=== PATIENT | male | born 1965 | race Caucasian/White ===

== ENCOUNTER 2016-07-25 11:21 | Inpatient (IN) | payer MEDICARE, OTHER ==
[~2016-07-25] VITALS: Ht 190.5 cm; Wt 103.7 kg
[~2016-07-25 11:21] MED LIST: INVE6TAB2 PO; LORA-474 PO; ZYPR10TA9 PO
--- NOTE | 2016-07-25 11:40 | PD ---
HPI Chief Complaint: psychiatric evaluation Time Seen by Provider: 11:32 Travel History International Travel<30 days: No Contact w/Intl Traveler<30days: No Traveled to known affect area: No History of Present Illness HPI The patient is a 51-year-old male who presents emergency department via police as a Taylor act. According to the police affidavit the patient entered [employer] store earlier today and while purchasing a pair of shoes he told the reordering clerk that he was schizophrenic and has black males inside of him telling him to kill why people. The subject also made the same statements to the communication manager. The police officers affidavit states they made contact with the patient's mother who verified he is schizophrenic and needs assistance. Upon arrival patient denies any hallucinations or delusions. He denies any external stimuli denies ingestion of any alcohol or drugs. He denies any suicidal or homicidal ideation. He denies illicit drug use or alcohol use. The patient was found with a large amount of solis, approximate $1800 in solis, when asked why he has some much solis, he states he recently sold his house. The patient states he resides in [place]. [facility] Past Medical History Arthritis: No Anxiety: Yes Depression: Yes Cardiovascular Problems: Yes Cerebrovascular Accident: No Diminished Hearing: No Endocrine: No Genitourinary: No Hypertension: Yes Immune Disorder: No Musculoskeletal: No Neurologic: No Psychiatric: Yes Reproductive: No Respiratory: No Migraines: No Schizophrenia: Yes Seizures: No Past Surgical History Abdominal Surgery: No Cardiac Surgery: No Ear Surgery: No Endocrine Surgery: No Eye Surgery: No Genitourinary Surgery: No Gynecologic Surgery: No Oral Surgery: No Thoracic Surgery: No Other Surgery: Yes Social History Alcohol Use: No Tobacco Use: No Substance Use: No Allergies-Medications (Allergen,Severity, Reaction): Coded Allergies: Aspirin (Verified Allergy, Severe, 07/25/16) Reported Meds & Prescriptions Reported Meds & Active Scripts Active No Active Prescriptions or Reported Medications Review of Systems Except as stated in HPI: all other systems reviewed are Neg General / Constitutional: No: Fever Cardiovascular: No: Chest Pain or Discomfort Respiratory: No: Shortness of Breath Gastrointestinal: No: Nausea, Vomiting, Abdominal Pain Neurologic: No: Change in Mentation Psychiatric: Positive: Disorder of Thought, No: Anxiety, Depression, Suicidal Ideations, Substance Abuse, Homicidal Ideation Physical Exam Narrative GENERAL: Awake, alert, pleasant 51-year-old male who appears his stated age and is in no acute respiratory distress. Repetitive movements with the left upper extremity. SKIN: Warm and dry. Tattoos noted on the upper extremity is bilateral. HEAD: Atraumatic. Normocephalic. EYES: Pupils equal and round. Pupils are 3 mm bilateral and reactive. ENT: No nasal bleeding or discharge. Mucous membranes pink and moist. NECK: Trachea midline. No JVD. CARDIOVASCULAR: Regular rate and rhythm. No murmur appreciated. RESPIRATORY: No accessory muscle use. Clear to auscultation. Breath sounds equal bilaterally. GASTROINTESTINAL: Abdomen soft, non-tender, nondistended. No rebound tenderness. MUSCULOSKELETAL: No obvious deformities. No clubbing. No cyanosis. No edema. NEUROLOGICAL: Awake and alert. No obvious cranial nerve deficits. Motor grossly within normal limits. Normal speech. Nonfocal. Oriented to person, place, month, year, and payroll secretary. PSYCHIATRIC: Odd affect. Data Data Last Documented VS Vital Signs Date Time Temp Pulse Resp B/P Pulse Ox O2 Delivery O2 Flow Rate FiO2 07/25/16 11:42 97.8 107 16 192/95 96 Room Air Orders Complete Blood Count With Diff (07/25/16 11:39) Comprehensive Metabolic Panel (07/25/16 11:39) Psych Screen (07/25/16 11:39) Drug Screen, Random Urine (07/25/16 11:39) Alcohol (Ethanol) (07/25/16 11:39) Diet Regular Basic (07/25/16 Lunch) Labs Laboratory Tests Test 07/25/16 11:45 White Blood Count 6.4 TH/MM3 Red Blood Count 4.81 MIL/MM3 Hemoglobin 14.5 GM/DL Hematocrit 43.6 % Mean Corpuscular Volume 90.8 FL Mean Corpuscular Hemoglobin 30.2 PG Mean Corpuscular Hemoglobin 33.3 % Concent Red Cell Distribution Width 14.0 % Platelet Count 223 TH/MM3 Mean Platelet Volume 8.5 FL Neutrophils (%) (Auto) 53.4 % Lymphocytes (%) (Auto) 31.2 % Monocytes (%) (Auto) 12.0 % Eosinophils (%) (Auto) 2.2 % Basophils (%) (Auto) 1.2 % Neutrophils # (Auto) 3.4 TH/MM3 Lymphocytes # (Auto) 2.0 TH/MM3 Monocytes # (Auto) 0.8 TH/MM3 Eosinophils # (Auto) 0.1 TH/MM3 Basophils # (Auto) 0.1 TH/MM3 CBC Comment DIFF FINAL Differential Comment Sodium Level 141 MEQ/L Potassium Level 4.1 MEQ/L Chloride Level 107 MEQ/L Carbon Dioxide Level 26.2 MEQ/L Anion Gap 8 MEQ/L Blood Urea Nitrogen 14 MG/DL Creatinine 0.85 MG/DL Estimat Glomerular Filtration 95 ML/MIN Rate Random Glucose 100 MG/DL Calcium Level 8.9 MG/DL Total Bilirubin 0.5 MG/DL Aspartate Amino Transf 33 U/L (AST/SGOT) Alanine Aminotransferase 70 U/L (ALT/SGPT) Alkaline Phosphatase 84 U/L Total Protein 7.9 GM/DL Albumin 3.8 GM/DL Ethyl Alcohol Level LESS THAN 3 MG/DL [facility] Medical Decision Making Medical Screen Exam Complete: Yes Emergency Medical Condition: Yes Medical Record Reviewed: Yes Interpretation(s) Laboratory Tests Test 07/25/16 11:45 White Blood Count 6.4 TH/MM3 Red Blood Count 4.81 MIL/MM3 Hemoglobin 14.5 GM/DL Hematocrit 43.6 % Mean Corpuscular Volume 90.8 FL Mean Corpuscular Hemoglobin 30.2 PG Mean Corpuscular Hemoglobin 33.3 % Concent Red Cell Distribution Width 14.0 % Platelet Count 223 TH/MM3 Mean Platelet Volume 8.5 FL Neutrophils (%) (Auto) 53.4 % Lymphocytes (%) (Auto) 31.2 % Monocytes (%) (Auto) 12.0 % Eosinophils (%) (Auto) 2.2 % Basophils (%) (Auto) 1.2 % Neutrophils # (Auto) 3.4 TH/MM3 Lymphocytes # (Auto) 2.0 TH/MM3 Monocytes # (Auto) 0.8 TH/MM3 Eosinophils # (Auto) 0.1 TH/MM3 Basophils # (Auto) 0.1 TH/MM3 CBC Comment DIFF FINAL Differential Comment Sodium Level 141 MEQ/L Potassium Level 4.1 MEQ/L Chloride Level 107 MEQ/L Carbon Dioxide Level 26.2 MEQ/L Anion Gap 8 MEQ/L Blood Urea Nitrogen 14 MG/DL Creatinine 0.85 MG/DL Estimat Glomerular Filtration 95 ML/MIN Rate Random Glucose 100 MG/DL Calcium Level 8.9 MG/DL Total Bilirubin 0.5 MG/DL Aspartate Amino Transf 33 U/L (AST/SGOT) Alanine Aminotransferase 70 U/L (ALT/SGPT) Alkaline Phosphatase 84 U/L Total Protein 7.9 GM/DL Albumin 3.8 GM/DL Ethyl Alcohol Level LESS THAN 3 MG/DL Differential Diagnosis Differential diagnoses includes schizophrenia, schizoaffective disorder, psychosis, drug ingestion, encephalopathy. Narrative Course Labs were drawn and sent. Psychiatric evaluation was ordered. Labs are unremarkable. Patient is medically clear to be evaluated by psychiatry. Disposition as per psych. Diagnosis Primary Impression: Schizophrenia Qualified Code: F20.9 - Schizophrenia, unspecified type Scripts No Active Prescriptions or Reported Meds Condition: Stable Alvino Jacobsen MD Jul 25, 2016 11:40
[2016-07-25 11:42] VITALS: BP 192/95; PULSE 107; RESP 16; TEMP 97.8; O2SAT 96
[2016-07-25 11:59] LABS: AUTOMATED NEUTROPHIL # 3.4 TH/MM3 (1.8-7.7); BASOPHIL # 0.1 TH/MM3 (0-0.2); BASOPHIL % 1.2 % (0.0-2.0); EOSINOPHIL # 0.1 TH/MM3 (0-0.4); EOSINOPHIL % 2.2 % (0.0-4.0); HEMATOCRIT 43.6 % (39.0-51.0); HEMO FLAGS DIFF FINAL; LYMPH % 31.2 % (9.0-44.0); MEAN CELL VOLUME 90.8 FL (80.0-100.0); MEAN CORPUSCULAR HEMOGLOBIN 30.2 PG (27.0-34.0); MEAN CORPUSCULAR HGB CONC 33.3 % (32.0-36.0); NEUT % 53.4 % (16.0-70.0); PLATELET COUNT 223 TH/MM3 (150-450); RED BLOOD COUNT 4.81 MIL/MM3 (4.50-5.90); WHITE BLOOD COUNT 6.4 TH/MM3 (4.0-11.0)
[2016-07-25 12:22] LABS: ALKALINE PHOSPHATASE 84 U/L (45-117); TOTAL BILIRUBIN ADULT 0.5 MG/DL (0.2-1.0)
[2016-07-25 12:23] LABS: ALT (GPT) 70 U/L (12-78); ANION GAP 8 MEQ/L (5-15); AST (GOT) 33 U/L (15-37); BICARBONATE 26.2 MEQ/L (21.0-32.0); BLOOD UREA NITROGEN 14 MG/DL (7-18); CHLORIDE 107 MEQ/L (98-107); GLOMERULAR FILTRATION RATE 95 ML/MIN (>89); POTASSIUM 4.1 MEQ/L (3.5-5.1); SODIUM (NA) 141 MEQ/L (136-145)
[2016-07-25 15:39] VITALS: BP 169/82; PULSE 85; RESP 18; O2SAT 97
[2016-07-25 16:59] LABS: AMPHETAMINE, URINE NEG (NEG); BARBITURATES, URINE NEG (NEG); COCAINE, URINE NEG (NEG)
[2016-07-25] MEDS ORDERED: ALUMINUM/MAGNESIUM/SIMETH 30 ML CUP PO PRN (21:30)
[2016-07-25] MEDS ORDERED: BENZTROPINE MESYLATE 2 MG/2 ML VIAL IM PRN (21:30)
[2016-07-25] MEDS ORDERED: LORazepam 2 MG/ML VIAL IM PRN (21:30)
[2016-07-25] MEDS ORDERED: ACETAMINOPHEN 325 MG TAB PO PRN (21:30)
[2016-07-25] MEDS ORDERED: MAGNESIUM HYDROXIDE SUSP 30 ML CUP PO PRN (21:30)
[2016-07-25] MEDS ORDERED: PALI234P IM (21:37)
[2016-07-25] MEDS ORDERED: BENZ2TAB PO (21:40)
[2016-07-25 22:10] VITALS: BP 168/87; PULSE 73; RESP 17; O2SAT 96
[2016-07-26 02:34] VITALS: BP 163/90; PULSE 65; RESP 20; TEMP 97.5; O2SAT 93
[2016-07-26] MEDS: REMOVE OLD PATCH T-DERMAL SCH (09:00)
[2016-07-26] MEDS: NICOTINE 21 MG/24 HR PATCH T-DERMAL SCH (09:00)
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
[2016-07-26] MEDS ORDERED: cloNIDine HCL 0.1 MG TAB PO PRN (14:45)
[2016-07-26] MEDS: amLODIPine BESYLATE 5 MG TAB PO SCH (15:45)
[2016-07-26 18:20] VITALS: BP 156/94; PULSE 70; RESP 18; TEMP 97.6; O2SAT 90
[2016-07-26] MEDS: BENZTROPINE MESYLATE 2 MG TAB PO SCH (20:35)
[2016-07-27 01:24] LABS: BLOOD, URINE NEG (NEG); COMMENT (UR) CULT NOT INDICATED; CULTURE IF INDICATED CULT NOT INDICATED; GLUCOSE,URINE NEG (NEG); KETONE, URINE NEG (NEG); MUCUS URINE FEW /lpf (OCC); NITRITE,URINE NEG (NEG); URINE COLOR YELLOW (YELLW/STRAW)
[2016-07-27 05:58] VITALS: BP 120/61; PULSE 95; RESP 18; TEMP 98.1; O2SAT 96
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
[2016-07-27] MEDS: LORazepam 1 MG TAB PO PRN ×2 (08:29→22:06)
[2016-07-27] MEDS: amLODIPine BESYLATE 5 MG TAB PO SCH (08:29)
[2016-07-27] MEDS: REMOVE OLD PATCH T-DERMAL SCH (08:30)
[2016-07-27] MEDS: NICOTINE 21 MG/24 HR PATCH T-DERMAL SCH (08:30)
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
--- NOTE | 2016-07-27 13:50 | HHI.PYPN ---
Subjective Remarks Patient seen and examined. Chart reviewed. Medication list from Naveen Villanueva reviewed. It appears that the patient has been receiving only Invega Sustenna and Cogentin. Case discussed with nursing staff who reports patient is calm and pleasant. On my examination today, I inquire as to why the patient sold his house. Patient says, "I wanted to get money while I was young to have a good time. There's this girl I met, she just got out of skilled nursing, and we're supposed to be unless she reneged." Denies side effects from medications. Review of Systems ROS Limitations: Poor Historian Other No physical complaints today. Objective Alert: Yes [place]: Person, Place Mood: Calm Affect: Euthymic Memory Intact: Comment (Not formally assessed) Hallucinations: Other (No AVH) Delusions: Yes Delusion Type: Paranoid Suicidal: Ideation (No SI) Homicidal: Ideation (No HI) Insight/Judgement Poor Remarks No abnormal motor movements noted. Thought process linear. Grooming and hygiene fair at best. Labs Test 07/27/16 00:55 Urine Color YELLOW Urine Turbidity CLEAR Urine pH 6.0 Urine Specific [place] 1.022 Urine Protein NEG mg/dL Urine Glucose (UA) NEG mg/dL Urine Ketones NEG mg/dL Urine Occult Blood NEG Urine Nitrite NEG Urine Bilirubin NEG Urine Urobilinogen LESS THAN 2.0 MG/DL Urine Leukocyte Esterase NEG Urine WBC LESS THAN 1 /hpf Urine Mucus FEW /lpf Microscopic Urinalysis Comment CULT NOT INDICATED Labs reviewed. Vitals/IOs Vital Signs Date Time Temp Pulse Resp B/P Pulse Ox O2 Delivery O2 Flow Rate FiO2 07/27/16 05:58 98.1 95 18 120/61 96 07/25/16 22:10 Room Air Assessment & Plan Problem List: (1) Schizophrenia ICD Code: F20.9 Assessment & Plan Augment Invega Sustenna with Seroquel 50mg qHS. Continue other medications as ordered. Appreciate hospitalist devops consultant input. Continue other care as ordered. Justification for Cont. Inpt. Monitoring for impairments in safety. Impairment in self-care and social function. Medication changes. Very high risk for decompensation in a less restrictive environment. Discharge Planning Patient will likely require placement if retained by the [place]. Request HC Surrog/Guard Advoc?: Yes Problem Qualifiers (1) Schizophrenia: Qualified Code: F20.0 - Paranoid schizophrenia Yinka Rouse MD Jul 27, 2016 13:50
[2016-07-27 17:25] VITALS: BP_SYST 106; BP_SYST 133; BP_DIAS 63; BP_DIAS 72; PULSE 90; PULSE 93; RESP 16; RESP 18; TEMP 97.7; TEMP 98.6; O2SAT 96; O2SAT 97
[2016-07-27] MEDS: BENZTROPINE MESYLATE 2 MG TAB PO SCH (20:59)
[2016-07-27] MEDS: QUEtiapine FUMARATE 25 MG TAB PO SCH (20:59)
[2016-07-27] MEDS: diphenhydrAMINE HCL 50 MG CAP PO PRN (22:06)
[2016-07-28 06:13] VITALS: BP 102/67; PULSE 92; RESP 18; TEMP 98.8; O2SAT 96
[2016-07-28] MEDS: amLODIPine BESYLATE 5 MG TAB PO SCH (09:00)
[2016-07-28] MEDS: NICOTINE 21 MG/24 HR PATCH T-DERMAL SCH (09:00)
[2016-07-28] MEDS: REMOVE OLD PATCH T-DERMAL SCH (09:00)
[2016-07-28] MEDS: LORazepam 1 MG TAB PO PRN (09:02)
[2016-07-28] MEDS ORDERED: PILL SPLITTER OTHER PRN (10:00)
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
[2016-07-28 17:28] VITALS: BP 136/91; PULSE 108; RESP 18; O2SAT 97
[2016-07-28] MEDS: QUEtiapine FUMARATE 25 MG TAB PO SCH (20:52)
[2016-07-28] MEDS: BENZTROPINE MESYLATE 2 MG TAB PO SCH (20:52)
[2016-07-29 06:03] VITALS: BP 130/90; PULSE 113; RESP 16; TEMP 98; O2SAT 97
[2016-07-29] MEDS: NICOTINE 21 MG/24 HR PATCH T-DERMAL SCH (08:59)
[2016-07-29] MEDS: REMOVE OLD PATCH T-DERMAL SCH (09:00)
[2016-07-29] MEDS ORDERED: amLODIPine BESYLATE 5 MG TAB PO SCH (09:00)
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
[2016-07-29 19:01] VITALS: BP 162/87; PULSE 91; RESP 16; TEMP 97.8; O2SAT 96
[2016-07-29] MEDS: BENZTROPINE MESYLATE 2 MG TAB PO SCH (20:46)
[2016-07-29] MEDS: QUEtiapine FUMARATE 25 MG TAB PO SCH (20:46)
[2016-07-30 05:42] VITALS: BP 119/79; PULSE 69; RESP 18; TEMP 97.9; O2SAT 97
[2016-07-30 08:16] LABS: HDL CHOLESTEROL 39.7 MG/DL (40.0-60.0); LDL CHOLESTEROL 89 MG/DL (0-99)
[2016-07-30] MEDS: REMOVE OLD PATCH T-DERMAL SCH (09:00)
[2016-07-30] MEDS: NICOTINE 21 MG/24 HR PATCH T-DERMAL SCH (09:00)
--- NOTE | 2016-07-30 10:14 | HHI.PR ---
Blank section for building Blood pressure and heart rate improved. Patient no longer requiring antihypertensive medication. Elevated blood pressure likely situational/related to anxiety Patient appears medically stable at this point will sign off if patient's condition changes or further assistance is needed please reconsult. Discussed with Ciarra Payton Jul 30, 2016 10:13
[2016-07-30 14:33] LABS: HEMOGLOBIN A1a 0.8 %; HEMOGLOBIN A1b 1.7 %; HEMOGLOBIN Ao 86.2 %; HEMOGLOBIN LA1C 1.8 %; HEMOGLOBIN P3 3.6 %
--- NOTE | 2016-07-30 15:10 | HHI.PYPN ---
Subjective Remarks Patient was seen and case discussed with nursing. Patient remains a poor insight into his reasons for admission and is mental health history. Largely seclusive to self. Compliant with his medications and behaving well on the unit. Continues to deny psychotic symptoms Objective Alert: Yes [place]: Person, Place Mood: Anxious Affect: Restricted Memory Intact: Comment (Not formally assessed) Hallucinations: Other (No AVH) Delusions: Yes Delusion Type: Paranoid (improving) Suicidal: Ideation (No SI) Homicidal: Ideation (No HI) Insight/Judgement Poor Labs Test 07/30/16 07:11 Hemoglobin A1c 5.6 % Triglycerides Level 108 MG/DL Cholesterol Level 150 MG/DL LDL Cholesterol 89 MG/DL HDL Cholesterol 39.7 MG/DL Cholesterol/HDL Ratio 3.77 RATIO Vitals/IOs Vital Signs Date Time Temp Pulse Resp B/P Pulse Ox O2 Delivery O2 Flow Rate FiO2 07/30/16 05:42 97.9 69 18 119/79 97 Assessment & Plan Problem List: (1) Schizophrenia ICD Code: F20.9 Assessment & Plan Continue current treatment plan Justification for Cont. Inpt. Patient will decompensate in a less restrictive setting Request HC Surrog/Guard Advoc?: Yes Problem Qualifiers (1) Schizophrenia: Qualified Code: F20.0 - Paranoid schizophrenia Bar Palm DO Jul 30, 2016 15:10
[2016-07-30 18:09] VITALS: BP 135/80; PULSE 100; RESP 18; TEMP 97.8; O2SAT 93
[2016-07-30] MEDS: QUEtiapine FUMARATE 25 MG TAB PO SCH (20:51)
[2016-07-30] MEDS: BENZTROPINE MESYLATE 2 MG TAB PO SCH (20:51)
[2016-07-31] MEDS: LORazepam 1 MG TAB PO PRN ×2 (01:14→20:40)
[2016-07-31 05:57] VITALS: BP 135/72; RESP 16; TEMP 97.8; O2SAT 96
[2016-07-31] MEDS: NICOTINE 21 MG/24 HR PATCH T-DERMAL SCH (08:52)
[2016-07-31] MEDS: REMOVE OLD PATCH T-DERMAL SCH (08:52)
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
[2016-07-31 17:54] VITALS: BP 153/93; PULSE 85; RESP 16; TEMP 97.9; O2SAT 99
[2016-07-31] MEDS: BENZTROPINE MESYLATE 2 MG TAB PO SCH (20:40)
[2016-07-31] MEDS: diphenhydrAMINE HCL 50 MG CAP PO PRN (20:40)
[2016-07-31] MEDS: QUEtiapine FUMARATE 25 MG TAB PO SCH (20:40)
[2016-08-01 05:55] VITALS: BP 139/84; PULSE 78; RESP 17; TEMP 97.6; O2SAT 92
[2016-08-01] MEDS: REMOVE OLD PATCH T-DERMAL SCH (08:57)
[2016-08-01] MEDS: NICOTINE 21 MG/24 HR PATCH T-DERMAL SCH (08:57)
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
[2016-08-01 18:10] VITALS: BP 147/82; PULSE 98; RESP 16; TEMP 97.5; O2SAT 94
[2016-08-01] MEDS: BENZTROPINE MESYLATE 2 MG TAB PO SCH (20:49)
[2016-08-01] MEDS: QUEtiapine FUMARATE 100 MG TAB PO SCH (20:50)
[2016-08-01] MEDS: LORazepam 1 MG TAB PO PRN (22:54)
[2016-08-02] MEDS: diphenhydrAMINE HCL 50 MG CAP PO PRN (01:44)
[2016-08-02 06:20] VITALS: BP 154/90; PULSE 78; RESP 18; TEMP 97.8; O2SAT 98
[2016-08-02] MEDS: REMOVE OLD PATCH T-DERMAL SCH ×2 (09:00→20:29)
[2016-08-02] MEDS: NICOTINE 21 MG/24 HR PATCH T-DERMAL SCH (09:00)
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
[2016-08-02 18:39] VITALS: BP 126/75; PULSE 90; RESP 17; TEMP 97.4; O2SAT 95
[2016-08-02] MEDS: BENZTROPINE MESYLATE 2 MG TAB PO SCH (20:27)
[2016-08-02] MEDS: QUEtiapine FUMARATE 100 MG TAB PO SCH (20:27)
[2016-08-03] MEDS: diphenhydrAMINE HCL 50 MG CAP PO PRN ×2 (02:14→21:18)
[2016-08-03] MEDS: LORazepam 1 MG TAB PO PRN ×2 (02:15→21:18)
[2016-08-03 06:14] VITALS: BP 165/72; PULSE 74; RESP 18; TEMP 97.9; O2SAT 99
[2016-08-03] MEDS: NICOTINE 21 MG/24 HR PATCH T-DERMAL SCH (09:00)
--- NOTE | 2016-08-03 12:06 | HHI.PYPN ---
Subjective Remarks Patient seen and case discussed with nursing staff. Chart reviewed. For me today, patient is quite discharge focused. He seems a little more fidgety and hyperkinetic but is able to make himself still with some effort. Insists that no one is in his head. No SI/HI. No reported side effects from medications. Review of Systems ROS Limitations: Poor Historian Except as stated in HPI: all other systems reviewed are Neg Objective Alert: Yes [place]: Person, Place Mood: Anxious Affect: Other (childlike) Memory Intact: Comment (Not formally assessed) Hallucinations: Other (no AVH) Delusions: No Delusion Type: Other (no delusions.) Suicidal: Ideation (no SI) Homicidal: Ideation (no HI) Insight/Judgement Poor Remarks Motor exam as above. No other motoric abnormalities noted. Thought process linear. Grooming and hygiene fair. Labs Labs reviewed. No new labs. Vitals/IOs Vital Signs Date Time Temp Pulse Resp B/P Pulse Ox O2 Delivery O2 Flow Rate FiO2 08/03/16 06:14 97.9 74 18 165/72 99 Intake and Output 08/02/16 08/02/16 08/03/16 08:00 16:00 00:00 Intake Total 360 ml Balance 360 ml Assessment & Plan Problem List: (1) Schizophrenia ICD Code: F20.9 (2) Akathisia Assessment & Plan: Possible ICD Code: G25.71 Assessment & Plan Concerned that the patient may be experiencing some degree of akathisia from antipsychotics, and this is why he is so fidgety. BP is intermittently high. I will add Inderal 10mg TID to try to ameliorate both of these issues. Continue other medications as ordered. Continue to monitor on the inpatient unit. Continue other care as ordered. Patient's case was presented to the [place] today. Patient's binder caser and family were present. Patient was retained by the court and his mother was appointed as his guardian advocate. Justification for Cont. Inpt. Concern for impairments in safety. Concern for impairments in reality construction. Medication changes and process. Complicating conditions, namely possible akathisia. High risk for decompensation in a less restrictive environment. Discharge Planning Plan now is for placement. Counselor to begin working on this. Request HC Surrog/Guard Advoc?: Yes Problem Qualifiers (1) Schizophrenia: Qualified Code: F20.0 - Paranoid schizophrenia Yinka Rouse MD Aug 03, 2016 12:06
[2016-08-03] MEDS: PROPRANOLOL HCL 10 MG TAB PO SCH (18:00)
[2016-08-03] MEDS: BENZTROPINE MESYLATE 2 MG TAB PO SCH (21:18)
[2016-08-03] MEDS: QUEtiapine FUMARATE 100 MG TAB PO SCH (21:18)
[2016-08-03] MEDS: BENZTROPINE MESYLATE 1 MG TAB PO PRN (23:07)
[2016-08-04 06:08] VITALS: BP 137/66; PULSE 89; RESP 18; TEMP 97.9; O2SAT 97
[2016-08-04] MEDS: NICOTINE 21 MG/24 HR PATCH T-DERMAL SCH (09:00)
[2016-08-04] MEDS: REMOVE OLD PATCH T-DERMAL SCH (09:00)
[2016-08-04] MEDS: PROPRANOLOL HCL 10 MG TAB PO SCH ×3 (09:21→18:00)
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
[2016-08-04] MEDS ORDERED: PILL SPLITTER OTHER PRN (15:30)
[2016-08-04 17:00] VITALS: BP 167/73; PULSE 86; RESP 18; TEMP 98
[2016-08-04] MEDS: QUEtiapine FUMARATE 100 MG TAB PO SCH (20:23)
[2016-08-04] MEDS: BENZTROPINE MESYLATE 2 MG TAB PO SCH (20:23)
[2016-08-04] MEDS: LORazepam 1 MG TAB PO PRN (22:31)
[2016-08-04] MEDS: diphenhydrAMINE HCL 50 MG CAP PO PRN (22:31)
[2016-08-05 06:40] VITALS: BP 138/84; PULSE 67; RESP 18; TEMP 98; O2SAT 96
[2016-08-05] MEDS: NICOTINE 21 MG/24 HR PATCH T-DERMAL SCH (09:00)
[2016-08-05] MEDS: REMOVE OLD PATCH T-DERMAL SCH (09:00)
[2016-08-05] MEDS: PROPRANOLOL HCL 10 MG TAB PO SCH ×3 (09:41→17:19)
[2016-08-05] MEDS: QUEtiapine FUMARATE 100 MG TAB PO SCH ×2 (09:41→20:17)
--- NOTE | 2016-08-05 12:11 | HHI.PYPN ---
Subjective Remarks PT seen and discussed with staff. He has been compliant wt medications and denies side effects. He has been seclusive and isolative on unit. He is disheveled. He insists that the foaming machine operator told him he "only has to do two weeks" and then he is going home. Per review of chart, it appears that this was not said in court yet pt insists that it was. He becomes quiet animated when discussing court proceedings and paranoid ideations slip out. Objective Alert: Yes [place]: Person, Place Mood: Anxious Affect: Flat Memory Intact: Comment (Not formally assessed) Hallucinations: Other (no AVH) Delusions: Yes Delusion Type: Paranoid (conspiracies) Suicidal: Ideation (no SI) Homicidal: Ideation (no HI) Insight/Judgement poor Vitals/IOs Vital Signs Date Time Temp Pulse Resp B/P Pulse Ox O2 Delivery O2 Flow Rate FiO2 08/05/16 06:40 98.0 67 18 138/84 96 Assessment & Plan Problem List: (1) Schizophrenia ICD Code: F20.9 (2) Akathisia ICD Code: G25.71 Assessment & Plan Continue current tx plan. Estimated LOS: days Justification for Cont. Inpt. impairments in reality construction Request HC Surrog/Guard Advoc?: Yes Problem Qualifiers (1) Schizophrenia: Qualified Code: F20.0 - Paranoid schizophrenia Danielle Walker MD Aug 05, 2016 12:11
[2016-08-05 17:28] VITALS: BP 142/87; PULSE 82; RESP 18; TEMP 98.1; O2SAT 96
[2016-08-05] MEDS: BENZTROPINE MESYLATE 2 MG TAB PO SCH (20:17)
[2016-08-06] MEDS: diphenhydrAMINE HCL 50 MG CAP PO PRN (01:40)
[2016-08-06 05:56] VITALS: BP 111/57; PULSE 82; RESP 17; TEMP 97.5; O2SAT 97
[2016-08-06] MEDS: REMOVE OLD PATCH T-DERMAL SCH (09:00)
[2016-08-06] MEDS: PROPRANOLOL HCL 10 MG TAB PO SCH ×3 (09:39→18:22)
[2016-08-06] MEDS: QUEtiapine FUMARATE 100 MG TAB PO SCH ×2 (09:39→21:21)
--- NOTE | 2016-08-06 13:55 | HHI.PYPN ---
Subjective Remarks Pt seen and discussed with staff. Paranoid delusions persist, but pt has been a bit brighter in affect and engages more during interview. He is still isolative to his room but did venture outside for fresh air for a short time today. No medication side effects. No SI/HI. Review of Systems Psychiatric: COMPLAINS OF: Delusions Objective Alert: Yes [place]: Person, Place Mood: Calm Affect: Restricted Memory Intact: Comment (Not formally assessed) Hallucinations: Other (no AVH) Delusions: Yes Delusion Type: Paranoid (conspiracies) Suicidal: Ideation (no SI) Homicidal: Ideation (no HI) Insight/Judgement poor Vitals/IOs Vital Signs Date Time Temp Pulse Resp B/P Pulse Ox O2 Delivery O2 Flow Rate FiO2 08/06/16 05:56 97.5 82 17 111/57 97 Assessment & Plan Problem List: (1) Schizophrenia ICD Code: F20.9 (2) Akathisia ICD Code: G25.71 Assessment & Plan Pt improving. Continue current tx plan. Estimated LOS: days Justification for Cont. Inpt. impairments in reality construction Request HC Surrog/Guard Advoc?: Yes Problem Qualifiers (1) Schizophrenia: Qualified Code: F20.0 - Paranoid schizophrenia Danielle Walker MD Aug 06, 2016 13:55
[2016-08-06 18:35] VITALS: BP 120/72; PULSE 68; RESP 18; TEMP 98.6; O2SAT 99
[2016-08-06] MEDS: BENZTROPINE MESYLATE 2 MG TAB PO SCH (21:21)
[2016-08-07] MEDS: diphenhydrAMINE HCL 50 MG CAP PO PRN ×2 (01:33→20:01)
[2016-08-07 05:53] VITALS: BP 154/68; PULSE 81; RESP 18; TEMP 97.3; O2SAT 95
[2016-08-07] MEDS: PROPRANOLOL HCL 10 MG TAB PO SCH ×3 (09:18→18:00)
[2016-08-07] MEDS: QUEtiapine FUMARATE 100 MG TAB PO SCH ×2 (09:18→20:01)
--- NOTE | 2016-08-07 10:50 | HHI.PYPN ---
Subjective Remarks Patient seen and examined with nurse. Chart reviewed. Case discussed with nursing staff. Patient is quite discharge focused. On my examination today, the patient insists on discharge. He says that he has applied for for jobs and has to follow-up with this. He keeps repeating "I'm a kind man." Insight into mental illness is poor and the patient says "I have no mental illness." I discuss the patient's disposition options including state psychiatric hospitalization or, preferably, assisted living placement. The patient says that he wants neither of these and wants to return to his home, even though patient's family and keycase assembler along with myself were all in agreement that the patient requires placement given his chronic mental illness and violent ideation. I educate the patient that he may file a writ of habeas if he feels he should not be retained on the unit, and RN will provide this form to him. Denies side effects from medications. Review of Systems ROS Limitations: Psychotic, Poor Historian Except as stated in HPI: all other systems reviewed are Neg Objective Alert: Yes [place]: Person, Place Mood: Calm Affect: Restricted Memory Intact: Comment (Not assessed today) Hallucinations: Other (No AVH reported) Delusions: Yes Delusion Type: Paranoid Suicidal: Ideation (no SI) Homicidal: Ideation (no HI) Insight/Judgement Poor Remarks No motor abnormalities noted. TP perseverative on discharge. Speech wnl. Labs Labs reviewed. Vitals/IOs Vital Signs Date Time Temp Pulse Resp B/P Pulse Ox O2 Delivery O2 Flow Rate FiO2 08/07/16 05:53 97.3 81 18 154/68 95 Assessment & Plan Problem List: (1) Schizophrenia ICD Code: F20.9 (2) Akathisia Assessment & Plan: Resolved ICD Code: G25.71 Assessment & Plan Titrate Seroquel to target psychosis. Continue to monitor on the inpatient unit. Continue other medications and care as ordered. Justification for Cont. Inpt. Concern for impairments in safety. Impairments in reality construction. Medication changes. High risk for decompensation in a less restrictive environment. Discharge Planning Patient remains resistant to assisted living facility placement. My fear is that he will scuttle any placement we try to arrange for him. We will pursue this option, but I will initiate a state referral as a backup plan. Request HC Surrog/Guard Advoc?: Yes Problem Qualifiers (1) Schizophrenia: Qualified Code: F20.0 - Paranoid schizophrenia Yinka Rouse MD Aug 07, 2016 10:50
[2016-08-07 18:00] VITALS: BP 141/80; PULSE 96; RESP 16; TEMP 97.6; O2SAT 95
[2016-08-07] MEDS: LORazepam 1 MG TAB PO PRN (20:01)
[2016-08-07] MEDS: BENZTROPINE MESYLATE 2 MG TAB PO SCH (20:01)
[2016-08-08] MEDS: BENZTROPINE MESYLATE 1 MG TAB PO PRN (01:09)
[2016-08-08] MEDS: LORazepam 1 MG TAB PO PRN ×2 (01:09→22:24)
[2016-08-08 05:56] VITALS: BP 157/97; PULSE 72; RESP 18; TEMP 97.3; O2SAT 98
[2016-08-08] MEDS: PROPRANOLOL HCL 10 MG TAB PO SCH ×3 (09:40→17:47)
[2016-08-08] MEDS: QUEtiapine FUMARATE 100 MG TAB PO SCH ×2 (09:41→20:10)
--- NOTE | 2016-08-08 12:15 | HHI.PYPN ---
Subjective Remarks Patient seen and examined with nurse. Chart reviewed. Case discussed in treatment team with nurse, counselor and occupational therapist. Nurse reports patient was quite upset yesterday afternoon about the options of state hospital referral or MELL placement. Nurse reports that the patient has threatened to kill me. Counselor reiterates patient was upset and has threatened to hit me. On my examination today, patient seems to have forgotten this threat. He is in decent behavioral control. He is delusional and bizarre. He tells me, "it's like the fatherless can't learn a trade." Unclear what this means. He insists that the outsewer told him he could leave in 2 weeks. Denies side effects from medications. Review of Systems Except as stated in HPI: all other systems reviewed are Neg Objective Alert: Yes [place]: Person, Place Mood: Anxious Affect: Restricted Memory Intact: Comment (Not assessed today) Hallucinations: Other (appears internally preoccupied) Delusions: Yes Delusion Type: Paranoid Suicidal: Ideation (no SI) Homicidal: Ideation (no HI) Insight/Judgement Poor Remarks Thought process somewhat disorganized. Speech rambling. No motor abnormalities noted except the patient does grit his teeth a lot, and in retrospect I have notes this previously. He does seem to have some dental erosion in this area, and I suspect this movement is chronic. Labs Labs reviewed. Vitals/IOs Vital Signs Date Time Temp Pulse Resp B/P Pulse Ox O2 Delivery O2 Flow Rate FiO2 08/08/16 05:56 97.3 72 18 157/97 98 Assessment & Plan Problem List: (1) Schizophrenia ICD Code: F20.9 (2) Akathisia ICD Code: G25.71 Assessment & Plan Titrate Seroquel to 100/150 mg. Continue Inderal. Continue to monitor on the high acuity unit. Continue other medications and care as ordered. Justification for Cont. Inpt. Impairment in reality construction. Impairment in safety. Medication changes in process. High risk for decompensation in a less restrictive environment. Discharge Planning In discussing the matter with the counselor, it seems likely that given the patient's reluctance to be placed at this juncture he would likely work to foil our attempts to place him. State psychiatric hospital referral therefore is likely the primary disposition option. Request HC Surrog/Guard Advoc?: Yes Problem Qualifiers (1) Schizophrenia: Qualified Code: F20.0 - Paranoid schizophrenia Yinka Rouse MD Aug 08, 2016 12:15
[2016-08-08 17:48] VITALS: BP 151/93; PULSE 89; RESP 18; TEMP 98; O2SAT 97
[2016-08-08] MEDS: diphenhydrAMINE HCL 50 MG CAP PO PRN (20:10)
[2016-08-08] MEDS: BENZTROPINE MESYLATE 2 MG TAB PO SCH (20:10)
[2016-08-08] MEDS ORDERED: QUEtiapine FUMARATE 25 MG TAB PO SCH (23:30)
[2016-08-09 06:19] VITALS: BP 137/82; PULSE 86; RESP 18; TEMP 97.4; O2SAT 97
[2016-08-09] MEDS: PROPRANOLOL HCL 10 MG TAB PO SCH ×3 (08:36→18:00)
[2016-08-09] MEDS ORDERED: QUEtiapine FUMARATE 100 MG TAB PO SCH ×2 (09:00→21:00)
[2016-08-09] MEDS ORDERED: HALOPERIDOL LACTATE 5 MG/ML AMP ONE (10:14)
[2016-08-09] MEDS ORDERED: diphenhydrAMINE HCL 50 MG/ML VIAL ONE (10:15)
--- NOTE | 2016-08-09 10:15 | HHI.PYPN ---
Subjective Remarks Patient seen and examined with nurse. Chart reviewed. Case discussed with nursing staff reports patient is quite discharge focused. On my examination today, patient is quite irritable and threatening. He points his finger in my face and demands to be discharged now. He continues to escalate despite attempts at verbal de-escalation. When I conclude our interview, he pursues me into another patient's room. He yells, "maggot! You piece of shit!" He remains quite threatening to myself and to staff. It is my judgement that physical aggression is imminent. I have ordered him medicated with Haldol 10mg , Ativan 2mg and Benadryl 50mg IM Stat. He remains quite restive around the time of medication administration An 'all male staff' has to be called, and I have ordered patient placed in locked seclusion for safety. I was present at the initiation of seclusion. Review of Systems ROS Limitations: Psychotic, Poor Historian Except as stated in HPI: all other systems reviewed are Neg Objective Alert: Yes [place]: Person, Place Mood: Agitated, Angry, Anxious, Oppositional Affect: Restricted (intensely dysphoric and irritable) Memory Intact: Comment (Not assessed today) Hallucinations: Other (Remains int stim) Delusions: Yes Delusion Type: Paranoid Suicidal: Ideation (no SI) Homicidal: Ideation (Physically threatening) Insight/Judgement Poor Remarks No new motor abnormalities noted. Thought process perseverative on discharge. Speech loud and angry. Labs Labs reviewed. Vitals/IOs Vital Signs Date Time Temp Pulse Resp B/P Pulse Ox O2 Delivery O2 Flow Rate FiO2 08/09/16 06:19 97.4 86 18 137/82 97 Assessment & Plan Problem List: (1) Schizophrenia ICD Code: F20.9 (2) Threatening to others ICD Code: R45.89 Assessment & Plan Titrate Seroquel to 200/250mg to manage psychosis and irritability. I will add a Haldol PRN agitation. Continue to monitor on the high acuity unit. Continue other medications and care as ordered. Justification for Cont. Inpt. Impairment and safety. Impairment in reality construction. Impairment in social functioning. Medication changes and process. High risk for decompensation in a less restrictive environment. Discharge Planning State psychiatric hospital referral. I believe efforts at placement in an assisted-living setting of care would be fruitless at this time given patient's presentation today. Request HC Surrog/Guard Advoc?: Yes Problem Qualifiers (1) Schizophrenia: Qualified Code: F20.0 - Paranoid schizophrenia Yinka Rouse MD Aug 09, 2016 10:15
[2016-08-09] MEDS ORDERED: HALOPERIDOL LACTATE 5 MG/ML AMP IM ONE ×2 (10:30→10:45)
[2016-08-09] MEDS ORDERED: LORazepam 2 MG/ML VIAL IM ONE ×2 (10:30→10:45)
[2016-08-09] MEDS ORDERED: diphenhydrAMINE HCL 50 MG/ML VIAL IM ONE ×2 (10:45)
[2016-08-09] MEDS ORDERED: PILL SPLITTER OTHER PRN (13:30)
[2016-08-09 17:59] VITALS: BP 133/64; PULSE 89; RESP 18; TEMP 97.7; O2SAT 96
[2016-08-09] MEDS: BENZTROPINE MESYLATE 2 MG TAB PO SCH (20:25)
[2016-08-09] MEDS: LORazepam 1 MG TAB PO PRN (22:20)
[2016-08-09] MEDS: BENZTROPINE MESYLATE 1 MG TAB PO PRN (22:20)
[2016-08-10 06:09] VITALS: BP 129/67; PULSE 91; RESP 18; TEMP 97.1; O2SAT 99
[2016-08-10] MEDS ORDERED: QUEtiapine FUMARATE 100 MG TAB PO SCH (09:00)
[2016-08-10] MEDS: PROPRANOLOL HCL 10 MG TAB PO SCH ×3 (09:20→18:00)
--- NOTE | 2016-08-10 10:21 | HHI.PYPN ---
Subjective Remarks Patient seen and examined with counselor. Chart reviewed. Case discussed with nursing staff reports patient said that he would not accept larger doses of Seroquel. Patient apparently only accepted 100 mg of his 200 mg dose this morning, per nursing report. On my examination today, patient is irritable and discharge focused. He remains somewhat threatening. Insight into need for admission is poor. He is internally preoccupied. He reiterates he won't take the Seroquel. When I conclude the interview and return to the nursing station, he tries to push his way into the nursing station. No evident side effects from medications. Review of Systems ROS Limitations: Psychotic, Poor Historian Except as stated in HPI: all other systems reviewed are Neg Objective Alert: Yes [place]: Person, Place Mood: Angry, Oppositional Affect: Restricted (broadly dysphoric and irritable.) Memory Intact: Comment (Not assessed today) Hallucinations: Other (Internally preoccupied.) Delusions: Yes Delusion Type: Paranoid Suicidal: Ideation (no SI) Homicidal: Ideation (none voiced but remains menacing.) Insight/Judgement Poor Remarks Continues to grit teeth at times, but this is likely chronic. No other motor abnormalities noted. TP perseverative on discharge. Grooming and hygiene fair. Labs Labs reviewed. 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 Patient has said he won't take the Seroquel. Discontinue Seroquel and replace with Haldol PO/IM titration. Cogentin available PRN EPS, and the patient is on a scheduled dose of Cogentin, 2mg qHS. Continue Inderal for akathisia. Patient will also be due for Invega Sustenna booster next week. Definitely an angry affective component; to consider a mood stabilizer. Continue to monitor on the high acuity unit. Continue other medications and care as ordered. Justification for Cont. Inpt. Impairment in safety. Impairment in reality construction. Medication changes and process. High risk for decompensation in a less restrictive environment. Discharge Planning State psychiatric hospital referral. Patient has been offered assisted living placement as an alternative but he is flatly against this. Request HC Surrog/Guard Advoc?: Yes Problem Qualifiers (1) Schizophrenia: Qualified Code: F20.0 - Paranoid schizophrenia Yinka Rouse MD Aug 10, 2016 10:21
[2016-08-10] MEDS ORDERED: HALOPERIDOL LACTATE 5 MG/ML AMP IM PRN (10:30)
[2016-08-10 18:00] VITALS: BP 128/83; PULSE 77; RESP 18; TEMP 98.1; O2SAT 98
[2016-08-10] MEDS: BENZTROPINE MESYLATE 2 MG TAB PO SCH (20:05)
[2016-08-10] MEDS: HALOPERIDOL 5 MG TAB PO SCH (20:05)
[2016-08-10] MEDS: diphenhydrAMINE HCL 50 MG CAP PO PRN (20:05)
[2016-08-11] MEDS: LORazepam 1 MG TAB PO PRN (00:56)
[2016-08-11 06:13] VITALS: BP 118/76; PULSE 91; RESP 18; TEMP 98.1; O2SAT 96
[2016-08-11] MEDS: HALOPERIDOL 5 MG TAB PO SCH ×2 (08:40→20:35)
[2016-08-11] MEDS: PROPRANOLOL HCL 10 MG TAB PO SCH ×3 (08:40→17:58)
--- NOTE | 2016-08-11 12:52 | HHI.PYPN ---
Subjective Remarks Patient continues to be paranoid and easily agitated. Review of Systems ROS Limitations: Clinical Condition Objective Alert: Yes [place]: Person, Place Mood: Angry, Oppositional Affect: Restricted (broadly dysphoric and irritable.) Memory Intact: Comment (Not assessed today) Hallucinations: Other (Internally preoccupied.) Delusions: Yes Delusion Type: Paranoid Suicidal: Ideation (no SI) Homicidal: Ideation (none voiced but remains menacing.) Insight/Judgment Markedly impaired Vitals/IOs Vital Signs Date Time Temp Pulse Resp B/P Pulse Ox O2 Delivery O2 Flow Rate FiO2 08/11/16 06:13 98.1 91 18 118/76 96 Assessment & Plan Problem List: (1) Schizophrenia ICD Code: F20.9 (2) Threatening to others ICD Code: R45.89 Assessment & Plan Estimated LOS: 14 days patient not compliant with requested increased doses of Seroquel. This physician feels he is a candidate for long-acting injectable medicine instead. Justification for Cont. Inpt. Psychotic and threatening others. Request HC Surrog/Guard Advoc?: Yes Problem Qualifiers (1) Schizophrenia: Qualified Code: F20.0 - Paranoid schizophrenia Pritesh Kline MD Aug 11, 2016 12:51
[2016-08-11 19:05] VITALS: PULSE 79; RESP 18; TEMP 98.1; O2SAT 96
[2016-08-11] MEDS: BENZTROPINE MESYLATE 2 MG TAB PO SCH (20:35)
[2016-08-11] MEDS: diphenhydrAMINE HCL 50 MG CAP PO PRN (20:35)
[2016-08-12 05:54] VITALS: BP 123/80; PULSE 82; RESP 18; TEMP 98.7; O2SAT 95
[2016-08-12] MEDS: PROPRANOLOL HCL 10 MG TAB PO SCH ×3 (08:27→17:42)
[2016-08-12] MEDS: HALOPERIDOL 5 MG TAB PO SCH (08:27)
[2016-08-12] MEDS: LORazepam 1 MG TAB PO PRN (14:42)
--- NOTE | 2016-08-12 16:58 | HHI.PYPN ---
Subjective Remarks Patient was seen and case discussed with nursing. Patient remains perseverative on discharge. However, I was able to her redirect him. Otherwise he is less irritable and no aggression was seen today. Describes his mood is "good, showered." Compliant with his medications Objective Alert: Yes [place]: Person, Place Mood: Anxious, Oppositional Affect: Blunted Memory Intact: Comment (Not assessed today) Hallucinations: Other (Internally preoccupied.) Delusions: Yes Delusion Type: Paranoid Suicidal: Ideation (no SI) Homicidal: Ideation (none voiced but remains menacing.) Insight/Judgment Poor Vitals/IOs Vital Signs Date Time Temp Pulse Resp B/P Pulse Ox O2 Delivery O2 Flow Rate FiO2 08/12/16 05:54 98.7 82 18 123/80 95 Assessment & Plan Problem List: (1) Schizophrenia ICD Code: F20.9 (2) Threatening to others ICD Code: R45.89 Assessment & Plan Continue current treatment plan Justification for Cont. Inpt. Patient will decompensate in a less restrictive setting Request HC Surrog/Guard Advoc?: Yes Problem Qualifiers (1) Schizophrenia: Qualified Code: F20.0 - Paranoid schizophrenia Bar Palm DO Aug 12, 2016 16:58
[2016-08-12 17:30] VITALS: BP 134/71; PULSE 95; RESP 18; TEMP 98.1; O2SAT 97
[2016-08-12] MEDS: BENZTROPINE MESYLATE 2 MG TAB PO SCH (22:53)
[2016-08-12] MEDS: diphenhydrAMINE HCL 50 MG CAP PO PRN (22:53)
[2016-08-13 05:48] VITALS: BP 123/65; PULSE 87; RESP 17; TEMP 97.2; O2SAT 93
[2016-08-13] MEDS: PROPRANOLOL HCL 10 MG TAB PO SCH ×3 (08:35→18:21)
[2016-08-13] MEDS: HALOPERIDOL 5 MG TAB PO SCH ×4 (08:35→18:21)
[2016-08-13 12:15] VITALS: BP 121/73; PULSE 76; RESP 18; TEMP 98.3
[2016-08-13 19:30] VITALS: BP 139/89; PULSE 89; RESP 16; TEMP 97.9; O2SAT 97
--- NOTE | 2016-08-13 19:35 | HHI.PYPN ---
Subjective Remarks Patient was seen and case discussed with nursing. Per nursing patient had an episode of grimacing and perioral movements. He received a shot Cogentin which resolved his symptoms. He appears less hyperactive and there is no evidence of aggression or agitation is was noted last week. Continues to be perseverative on discharge. Poor insight into mental health. Denies any bizarre delusions. There is no EPS from my interview. No akathisia, tremors or dystonia Objective Alert: Yes [place]: Person, Place Mood: Oppositional Affect: Restricted Memory Intact: Comment (Not assessed today) Hallucinations: Other (Internally preoccupied.) Delusions: Yes Delusion Type: Paranoid Suicidal: Ideation (no SI) Homicidal: Ideation (denies today) Insight/Judgment Poor Vitals/IOs Vital Signs Date Time Temp Pulse Resp B/P Pulse Ox O2 Delivery O2 Flow Rate FiO2 08/13/16 12:15 98.3 76 18 121/73 08/13/16 05:48 93 Assessment & Plan Problem List: (1) Schizophrenia ICD Code: F20.9 (2) Threatening to others ICD Code: R45.89 Assessment & Plan Hold Haldol until tomorrow Justification for Cont. Inpt. Patient will decompensate in a less restrictive setting Request HC Surrog/Guard Advoc?: Yes Problem Qualifiers (1) Schizophrenia: Qualified Code: F20.0 - Paranoid schizophrenia Bar Palm DO Aug 13, 2016 19:35
[2016-08-13] MEDS: LORazepam 1 MG TAB PO PRN (20:40)
[2016-08-13] MEDS: diphenhydrAMINE HCL 50 MG CAP PO PRN (20:40)
[2016-08-13] MEDS: BENZTROPINE MESYLATE 2 MG TAB PO SCH (20:40)
[2016-08-14] MEDS: LORazepam 1 MG TAB PO PRN ×3 (00:54→23:01)
[2016-08-14 06:20] VITALS: BP 138/80; PULSE 85; RESP 18; TEMP 97.7; O2SAT 96
[2016-08-14] MEDS: PROPRANOLOL HCL 10 MG TAB PO SCH ×3 (09:00→18:00)
--- NOTE | 2016-08-14 10:48 | HHI.PYPN ---
Subjective Remarks Patient seen and examined with counselor and nurse. Chart reviewed. Case discussed with nursing staff reports patient has been no behavioral problem but did sleep somewhat poorly overnight. Haldol was apparently discontinued because the patient had some grimacing/perioral movements, but as previously documented these movements predated addition of Haldol and are likely chronic as the patient has dental erosions that I suspect are from these movements. Regardless, today on my examination the patient is significantly less irritable and less menacing. He is significantly less discharge focused although he certainly does express a preference for leaving the hospital. Denies side effects from medications. No physical complaints at this time. Review of Systems Except as stated in HPI: all other systems reviewed are Neg Objective Alert: Yes [place]: Person, Place (at least) Mood: Calm Affect: Euthymic Memory Intact: Comment (Not assessed today) Hallucinations: Other (no AVH) Delusions: No Delusion Type: Other (no luzma delusions) Suicidal: Ideation (no SI) Homicidal: Ideation (no HI) Insight/Judgment Poor Remarks No new motor abnormalities noted. Grooming and hygiene fair. Labs Labs reviewed. Vitals/IOs Vital Signs Date Time Temp Pulse Resp B/P Pulse Ox O2 Delivery O2 Flow Rate FiO2 08/14/16 06:20 97.7 85 18 138/80 96 Assessment & Plan Problem List: (1) Schizophrenia ICD Code: F20.9 Assessment & Plan Patient seems calmer off of additional antipsychotic. He does have the Invega Sustenna on board, and he reportedly received a dose one week prior to admission , which would mean the booster dose will be due this week. Continue to monitor off of additional antipsychotics at this time. I will transfer the patient to the lower acuity unit to see if the patient can tolerate a less restrictive milieu. Continue to monitor on the inpatient unit. Continue other medications and care as ordered. Justification for Cont. Inpt. Risk for decompensation in a less restrictive environment. Discharge Planning Patient is resistant to [facility] placement. [facility] psychiatric hospital referral has been initiated. Request HC Surrog/Guard Advoc?: Yes Problem Qualifiers (1) Schizophrenia: Qualified Code: F20.0 - Paranoid schizophrenia Yinka Rouse MD Aug 14, 2016 10:48
[2016-08-14 18:28] VITALS: BP 116/66; PULSE 81; RESP 20; TEMP 98.3; O2SAT 96
[2016-08-14] MEDS: BENZTROPINE MESYLATE 2 MG TAB PO SCH (20:11)
[2016-08-14] MEDS: diphenhydrAMINE HCL 50 MG CAP PO PRN (20:11)
[2016-08-15 05:27] VITALS: BP 129/78; PULSE 74; RESP 18; TEMP 97.9; O2SAT 95
[2016-08-15] MEDS: PROPRANOLOL HCL 10 MG TAB PO SCH ×3 (09:09→18:00)
--- NOTE | 2016-08-15 11:32 | HHI.PYPN ---
Subjective Remarks Patient insists that he is ready to be discharged. Denies trying to purchase a gun although a receipt was found. States he is not a danger to anyone else yet does not acknowledge his past behavior. This physician is feeling the patient needs mood stabilizing medication. Abilify was started at low dose. Review of Systems ROS Limitations: Clinical Condition Objective Alert: Yes [place]: Person, Place (at least) Mood: Calm Affect: Euthymic Memory Intact: Comment (Not assessed today) Hallucinations: Other (no AVH) Delusions: No Delusion Type: Other (no luzma delusions) Suicidal: Ideation (no SI) Homicidal: Ideation (no HI) Insight/Judgment Impaired Vitals/IOs Vital Signs Date Time Temp Pulse Resp B/P Pulse Ox O2 Delivery O2 Flow Rate FiO2 08/15/16 05:27 97.9 74 18 129/78 95 Intake and Output 08/14/16 08/14/16 08/15/16 08:00 16:00 00:00 Intake Total 480 ml Balance 480 ml Assessment & Plan Problem List: (1) Schizophrenia ICD Code: F20.9 Assessment & Plan Estimated LOS: 3 days and this physician's opinion, he needs antipsychotic medication to address both his mood instability and his thought content/thought process disorders. He was started on Abilify. If he can be convinced to take long-acting injectable Abilify, he may be a candidate for discharge. Justification for Cont. Inpt. Dangerous to others. Request HC Surrog/Guard Advoc?: Yes Problem Qualifiers (1) Schizophrenia: Qualified Code: F20.0 - Paranoid schizophrenia Pritesh Kline MD Aug 15, 2016 11:32
[2016-08-15 13:06] VITALS: BP 96/56; PULSE 93; O2SAT 96
[2016-08-15 17:49] VITALS: BP 136/75; PULSE 85; RESP 18; TEMP 97.6; O2SAT 96
[2016-08-15] MEDS: diphenhydrAMINE HCL 50 MG CAP PO PRN (20:11)
[2016-08-15] MEDS: BENZTROPINE MESYLATE 2 MG TAB PO SCH (20:11)
[2016-08-15] MEDS ORDERED: ARIPiprazole 2 MG TAB PO SCH (21:00)
[2016-08-16] MEDS: LORazepam 1 MG TAB PO PRN (00:08)
[2016-08-16 05:35] VITALS: BP 135/93; PULSE 73; RESP 19; TEMP 98.6; O2SAT 96
[2016-08-16] MEDS: PROPRANOLOL HCL 10 MG TAB PO SCH ×3 (08:56→17:30)
--- NOTE | 2016-08-16 14:31 | HHI.PYPN ---
Subjective Remarks Continues to be anxious and has difficulty sitting still or pursuing a line of thought and conversation. Tolerated Abilify last night and this physician will increase the dose for this evening. Continues to have impaired judgment and impaired insight regarding his own temper, threatening behavior and aggression. Remains delusional. Review of Systems ROS Limitations: Clinical Condition Objective Alert: Yes [place]: Person, Place (at least) Mood: Calm Affect: Euthymic Memory Intact: Comment (Not assessed today) Hallucinations: Other (no AVH) Delusions: Yes Delusion Type: Paranoid, Other (no luzma delusions) Suicidal: Ideation (no SI) Homicidal: Ideation (no HI) Insight/Judgment Impaired. Vitals/IOs Vital Signs Date Time Temp Pulse Resp B/P Pulse Ox O2 Delivery O2 Flow Rate FiO2 08/16/16 05:35 98.6 73 19 135/93 96 Assessment & Plan Problem List: (1) Schizophrenia ICD Code: F20.9 Assessment & Plan Estimated LOS: 2 days this physician plans to titrate up the patient's Abilify and then start Abilify Maintena. Patient has history of noncompliance as well as chronic psychotic thinking and aggressive behavior. It is hoped with the long-acting injectable medication he will remain more stable. Justification for Cont. Inpt. Remains delusional and paranoid and a danger to others. Request HC Surrog/Guard Advoc?: Yes Problem Qualifiers (1) Schizophrenia: Qualified Code: F20.0 - Paranoid schizophrenia Pritesh Kline MD Aug 16, 2016 14:31
[2016-08-16 16:00] VITALS: BP 140/90; PULSE 81; RESP 18; TEMP 97.6; O2SAT 96
[2016-08-16] MEDS: BENZTROPINE MESYLATE 2 MG TAB PO SCH (20:24)
[2016-08-16] MEDS: ARIPiprazole 5 MG TAB PO SCH (20:24)
[2016-08-16] MEDS: diphenhydrAMINE HCL 50 MG CAP PO PRN (20:24)
[2016-08-17] MEDS: LORazepam 1 MG TAB PO PRN (03:15)
[2016-08-17] MEDS: PROPRANOLOL HCL 10 MG TAB PO SCH ×3 (09:38→18:38)
--- NOTE | 2016-08-17 13:23 | HHI.PYPN ---
Subjective Remarks Patient has been calm and appropriate and cooperative. Although he remains paranoid, this is felt to be his baseline. He has responded well to medications and is no longer aggressive. If he continued to demonstrate stabilize mood, he will be discharged tomorrow. Review of Systems ROS Limitations: Clinical Condition Except as stated in HPI: all other systems reviewed are Neg Objective Alert: Yes [place]: Person, Place (at least) Mood: Calm Affect: Euthymic Memory Intact: Comment (Not assessed today) Hallucinations: Other (no AVH) Delusions: Yes Delusion Type: Paranoid, Other (no luzma delusions) Suicidal: Ideation (no SI) Homicidal: Ideation (no HI) Insight/Judgment Impaired but improved Vitals/IOs Vital Signs Date Time Temp Pulse Resp B/P Pulse Ox O2 Delivery O2 Flow Rate FiO2 08/16/16 16:00 97.6 81 18 140/90 96 Assessment & Plan Problem List: (1) Schizophrenia ICD Code: F20.9 Assessment & Plan Estimated LOS: 1 days patient is a candidate for Abilify Maintena and this physician will approach him for this long-acting injectable medicine prior to his discharge. Justification for Cont. Inpt. Requires more time on Abilify to ensure his compliance, stability, treat his paranoia and prevent his aggressive escalations of mood. Request HC Surrog/Guard Advoc?: Yes Problem Qualifiers (1) Schizophrenia: Qualified Code: F20.0 - Paranoid schizophrenia Pritesh Kline MD Aug 17, 2016 13:23
[2016-08-17] MEDS: ARIPiprazole 5 MG TAB PO SCH (20:29)
[2016-08-17] MEDS: BENZTROPINE MESYLATE 2 MG TAB PO SCH (20:29)
[2016-08-17] MEDS: diphenhydrAMINE HCL 50 MG CAP PO PRN (20:29)
[2016-08-18] MEDS: LORazepam 1 MG TAB PO PRN (02:37)
[2016-08-18 05:03] VITALS: BP 140/68; PULSE 77; RESP 18; TEMP 98.1; O2SAT 99
[2016-08-18] MEDS: PROPRANOLOL HCL 10 MG TAB PO SCH ×2 (09:25→13:33)
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
[2016-08-18] MEDS ORDERED: ARIP1TAB11 PO (10:57)
[2016-08-18] MEDS ORDERED: PROP10TA6 PO (10:57)
[2016-08-18] MEDS ORDERED: ARIP10IN IM (11:28)
[2016-08-18] MEDS ORDERED: ABILIFY MAINTENA 400 MG IM ONE ×2 (12:00→13:30)
== END 2016-08-18 14:25 | disposition home or self-care (01) | DRG 885 ==
LOC: NEPA 11:21 → NEDA 21:27 → H270 07-26 02:10 → H260 08-14 14:58
PROVIDERS: ADMIT Psychiatry & Neurology Psychiatry; ATTEND Psychiatry & Neurology Psychiatry
DX: F20.0 Paranoid schizophrenia (principal); I10 Essential (primary) hypertension; F41.9 Anxiety disorder, unspecified; F32.9 Major depressive disorder, single episode, unspecified; Z88.6 Allergy status to analgesic agent
CPT/HCPCS: 80053; 80061; 80307; 81001; 83036; 85025; 99284; J0515; J1200; J1630; J2060; Q0163